=== PATIENT | female | born 1985 | race Caucasian/White ===

== ENCOUNTER 2016-09-16 08:10 | Emergency (ER) | payer OTHER ==
[~2016-09-16] VITALS: Ht 167.6 cm; Wt 53.3 kg
[~2016-09-16 08:10] MED LIST: Motrin PO; Natalcare Rx,Pramile PO
[2016-09-16] MEDS ORDERED: AUGMENTIN875 MG PO (08:35)
[2016-09-16 08:45] VITALS: BP 110/58
== END 2016-09-16 09:01 | disposition home or self-care (01) ==
LOC: EME 08:10
DX: H65.92 Unspecified nonsuppurative otitis media, left ear (principal)
CPT/HCPCS: 99281; 99284

== ENCOUNTER 2017-10-22 16:03 | Emergency (ER) | payer OTHER ==
[~2017-10-22] VITALS: Ht 167.6 cm; Wt 52.0 kg
[~2017-10-22 16:03] MED LIST changes: +AUGMENTIN875 MG PO
[2017-10-22 16:48] LABS: HEMATOCRIT 41.6 % (36.0-46.0); HEMOGLOBIN 14.5 G/DL (11.9-15.5); MCH 30.2 PG (29.0-34.0); MCHC 34.9 G/DL (30.0-36.0); MCV 86.7 FL (83-99); PLATELET COUNT 337 K/uL (156-360); RBC DIS.WIDTH-CV 12.2 % (11.8-14.6); RBC DIS.WIDTH-SD 38.9 % (39-53); WHITE BLOOD COUNT 12.4 K/uL (4.1-10.2)
[2017-10-22 17:15] LABS: APPEARANCE SL.HAZY ((CLEAR)); BILIRUBIN NEGATIVE; BLOOD LARGE; COLOR YELLOW ((YELLOW)); GLUCOSE (STRIP) NEGATIVE; KETONES NEGATIVE; LEUKOCYTES NEGATIVE; NITRITE NEGATIVE; PROTEIN (STRIP) 100; SPECIFIC GRAVITY 1.028 (1.000-1.030); UROBILINOGEN 0.2 MG/DL (0.2-1.0)
[2017-10-22 17:30] LABS: QUANTITATIVE HCG 68029.3 MIU/ML
[2017-10-22 17:59] LABS: EPITHELIAL CELLS 1+ /HPF; WHITE BLOOD CELLS 0-5 /HPF (0-5)
[2017-10-22 18:00] LABS: BACTERIA 2+ /HPF; MUCUS 3+ /LPF; UCUL ADDED? YES
[2017-10-22 18:31] LABS: ALBUMIN 4.4 g/dL (3.2-4.8); CHLORIDE 102 mEq/L (99-109); POTASSIUM 4.1 mEq/L (3.7-5.4); SODIUM 137 mEq/L (136-147)
[2017-10-22 18:34] LABS: GLUCOSE 86 mg/dL (70-99); TOTAL PROTEIN 7.4 g/dL (6.4-8.3)
[2017-10-22 18:36] LABS: TOTAL BILIRUBIN 0.4 mg/dL (0.0-1.0)
[2017-10-22 18:37] LABS: ALKALINE PHOSPHATASE 45 IU/L (3-129); CREATININE 0.8 mg/dL (0.6-1.3); GFR ESTIMATE (CALCULATED) > 59 mL/min/
[2017-10-22 18:38] LABS: UREA NITROGEN (BUN) 8 mg/dL (9-23)
[2017-10-22 18:39] LABS: AST (GOT) 20 IU/L (2-34)
[2017-10-22 18:40] LABS: ALT (GPT) 15 IU/L (3-49)
[2017-10-22] MEDS ORDERED: KEFLEX500 MG PO (19:51)
[2017-10-22 20:11] VITALS: BP 112/58
== END 2017-10-22 20:13 | disposition home or self-care (01) ==
LOC: EME 16:03
DX: O20.0 Threatened abortion (principal); O23.41 Unspecified infection of urinary tract in pregnancy, first trimester; Z3A.10 10 weeks gestation of pregnancy; Z87.442 Personal history of urinary calculi
CPT/HCPCS: 76801; 80053; 81003; 84702; 85027; 86900; 86901; 87086; 99281; 99284